=== PATIENT | male | born 1955 | race Caucasian/White ===

== ENCOUNTER 2019-06-16 17:19 | Emergency (ER) | payer BC ==
[2019-06-16] MEDS ORDERED: NS 0.9% 1000 ML** 1,000 ML IV ONE (18:20)
--- NOTE | 2019-06-16 18:21 | ED ---
Abdominal Pain/Male - HPI Summary HPI Summary: Patient complains of right side pain starting at 11 AM today. Pain described as sharp but mild, worse with movement. Denies trauma, fever, cough, sore throat, CP, SOB, N/V/D, change in urine, change in BM, penile or testicular symptoms. Patient states history of diverticulitis presenting with pain on right side 11 years ago. Patient states he put heating pad on right side believing it was a muscle injury, and took Tylenol which provided relief. Patient sent from urgent care to ED for further evaluation of right lower quadrant pain. Urine negative at urgent care. Medical history is HDL, HTN. Abdominal surgical history is none. - History of Current Complaint Chief Complaint: EDAbdPain Stated Complaint: ABD PAIN PER PT Time Seen by Provider: 06/16/19 17:57 Hx Obtained From: Patient Onset/Duration: Sudden Onset, Lasting Hours Timing: Intermittent Severity Currently: Moderate Pain Intensity: 6 Pain Scale Used: 0-10 Numeric Location: Discrete At: RLQ Radiates to: Back Character: Sharp Aggravating Factor(s): Movement Alleviating Factor(s): OTC Analgesics Associated Signs And Symptoms: Positive: Negative - Allergies/Home Medications Allergies/Adverse Reactions: Allergies Allergy/AdvReac Type Severity Reaction Status Date / Time Penicillins Allergy Rash Verified 06/16/19 17:25 What Cheer Pepper [place] Allergy Facial Uncoded 06/16/19 17:25 Redness/Flushing Home Medications: Home Medications Atorvastatin* [Lipitor*] 40 mg PO DAILY 06/16/19 [History Confirmed 06/16/19] Valsartan TAB* [Diovan TAB*] 80 mg PO DAILY 06/16/19 [History Confirmed 06/16/19 ] PMH/Surg Hx/FS Hx/Imm Hx Endocrine/Hematology History: Denies: Hx Anticoagulant Therapy Cardiovascular History: Denies: Hx Pacemaker/ICD History: Denies: Hx Dialysis Sensory History: Denies: Hx Legally Blind Opthamlomology History: Denies: Hx Eye Prosthesis EENT History: Denies: Hx Deafness Neurological History: Denies: Hx Dementia Infectious Disease History: No Infectious Disease History: Denies: Traveled Outside the [place] in Last 30 Days - Family History Known Family History: Positive: Non-Contributory - Social History Alcohol Use: Occasionally Hx Substance Use: No Hx Tobacco Use: No Review of Systems Constitutional: Negative Eyes: Negative ENT: Negative Cardiovascular: Negative Respiratory: Negative Positive: Abdominal Pain Genitourinary: Negative Musculoskeletal: Negative Skin: Negative Neurological: Negative Psychological: Normal All Other Systems Reviewed And Are Negative: Yes Physical Exam - Summary Physical Exam Summary: Abdomen soft nontender. Triage Information Reviewed: Yes Vital Signs On Initial Exam: Initial Vitals Temp Pulse Resp BP Pulse Ox 98.2 F 102 16 166/115 96 06/16/19 17:22 06/16/19 17:22 06/16/19 17:22 06/16/19 17:22 06/16/19 17:22 Vital Signs Reviewed: Yes Appearance: Positive: Well-Appearing Skin: Positive: Warm Head/Face: Positive: Normal Head/Face Inspection Eyes: Positive: Normal Neck: Positive: Supple Respiratory/Lung Sounds: Positive: Clear to Auscultation Cardiovascular: Positive: Normal Abdomen Description: Positive: Nontender Musculoskeletal: Positive: Normal Neurological: Positive: Normal Psychiatric: Positive: Normal AVPU Assessment: Alert - Fred Coma Scale Best Eye Response: 4 - Spontaneous Best Motor Response: 6 - Obeys Commands Best Verbal Response: 5 - Oriented Coma Scale Total: 15 Diagnostics - Vital Signs Vital Signs Temp Pulse Resp BP Pulse Ox 06/16/19 17:22 98.2 F 102 16 166/115 96 - Laboratory Result Diagrams: 06/16/19 18:27 06/16/19 19:38 Lab Statement: Any lab studies that have been ordered have been reviewed, and results considered in the medical decision making process. Abdominal Pain Male Course/Dx - Course Course Of Treatment: Patient complains of right side pain starting at 11 AM today. Pain described as sharp but mild, worse with movement. Denies trauma, fever, cough, sore throat, CP, SOB, N/V/D, change in urine, change in BM, penile or testicular symptoms. Patient states history of diverticulitis presenting with pain on right side 11 years ago. Patient states he put heating pad on right side believing it was a muscle injury, and took Tylenol which provided relief. Patient sent from urgent care to ED for further evaluation of right lower quadrant pain. Urine negative at urgent care. Medical history is HDL, HTN. Abdominal surgical history is none. Vital signs within normal limits. Labs unremarkable. CT abdomen and pelvis with IV contrast unremarkable. Likely muscle strain of the abdominal wall. - Diagnoses Provider Diagnoses: Abdominal muscle strain Discharge ED - Sign-Out/Discharge Documenting (check all that apply): Patient Departure Patient Received Moderate/Deep Sedation with Procedure: No - Discharge Plan Condition: Stable Disposition: HOME Prescriptions: Cyclobenzaprine TAB* [Flexeril 10 MG TAB*] 10 mg PO TID PRN 4 Days #12 tab PRN Reason: Spasms Patient Education Materials: Muscle Strain (ED) Referrals: No Primary Care Phys,NOPCP [Primary Care Provider] - Additional Instructions: Alternate ibuprofen 600 mg with Tylenol 650 mg every 3 hours for muscle pain. Heating pads and massage can help. Take Flexeril as directed for muscle spasm. Return to the ED for any new or worsening symptoms. - Billing Disposition and Condition Condition: STABLE Disposition: Home - Attestation Statements Provider Attestation: I was available for consult. This patient was seen by the [facility]. The patient was not presented to, seen by, or examined by me. Lawson Moulton MD
[2019-06-16 18:42] LABS: ABS Basophils 0.1 10^3/ul (0-0.2); ABS Eosinophils 0.1 10^3/ul (0-0.6); ABS Lymphocytes 2.2 10^3/ul (1.0-4.8); ABS Monocytes 0.8 10^3/ul (0-0.8); ABS Neutrophils 6.1 10^3/ul (1.5-7.7); Eosinophil % 1.1 %; Hematocrit 41 % (42-52); Hemoglobin 14.6 g/dL (14.0-18.0); Mean Corpuscular HGB Conc 36 g/dL (31-36); Mean Corpuscular Hemoglobin 34 pg (27-31); Mean Corpuscular Volume 95 fL (80-94); Mean Platelet Volume 8.3 fL (7.4-10.4); Nucleated Red Blood Cells % 0.3; Platelet Count 200 10^3/uL (150-450); Red Cell Distribution Width 14 % (10-15); White Blood Count 9.3 10^3/uL (3.5-10.8)
[2019-06-16 18:59] LABS: ALT 50 U/L (7-52); Albumin 4.5 g/dL (3.2-5.2); Albumin/Globulin Ratio 1.7 (1-3); Alkaline Phosphatase 75 U/L (34-104); BUN/Creatinine Ratio 18.6 (8-20); Blood Urea Nitrogen 16 mg/dL (6-24); C Reactive Protein < 1.00 mg/L (<8.01); CO2 Carbon Dioxide 22 mmol/L (22-32); Calcium 9.5 mg/dL (8.6-10.3); Chloride 105 mmol/L (101-111); EGFR African American 108.3 (>60); EGFR Non-African American 89.5 (>60); Globulin 2.7 g/dL (2-4); Glucose 118 mg/dL (70-100); Sodium 137 mmol/L (135-145); Total Protein 7.2 g/dL (6.4-8.9)
[2019-06-16 19:30] LABS: Anion Gap 10 mmol/L (2-11)
[2019-06-16] MEDS ORDERED: Iohexol 300* (CONTRAST) 10 ML SDV IV ONE (20:03)
[2019-06-16 20:34] LABS: Potassium Redraw 3.6 mmol/L (3.5-5.0)
[2019-06-16] MEDS ORDERED: Cyclobenzaprine TAB* 10 MG PO ONE (21:10)
[2019-06-16] MEDS ORDERED: Ibuprofen TAB* 600 MG PO ONE (21:10)
[2019-06-16 21:20] VITALS: BP 167/94
== END 2019-06-16 21:19 | disposition home or self-care (01) ==
LOC: ED 17:19
DX: S39.011A Strain of muscle, fascia and tendon of abdomen, initial encounter (principal); X58.XXXA Exposure to other specified factors, initial encounter; Y92.9 Unspecified place or not applicable; K57.30 Diverticulosis of large intestine without perforation or abscess without bleeding; I10 Essential (primary) hypertension; Z79.899 Other long term (current) drug therapy; Z88.0 Allergy status to penicillin
CPT/HCPCS: 36415; 74177; 80053; 83690; 85025; 86140; 96360; 99283; A9270-GY; Q9967